=== PATIENT | male | born 1965 | race Caucasian/White ===

== ENCOUNTER 2018-10-23 12:39 | Day surgery (SDC) | payer BC ==
--- NOTE | 2018-10-22 20:40 | History & Physical ---
History of Present Illness General Date patient seen: October 15, 2018 Reason for Hospitalization: pre op H&P for outpatient surgery Present Illness HPI This is a very pleasant 53 year old male who was referred to myself by his primary care physician for evaluation of a left thigh mass. Patient states he first noted mass on posterior left thigh 5 years and and since he feels that is has grown in size. Now causes discomfort and is especially uncomfortable when he sits down given location. no drainage. no infection. otherwise well Allergies: Coded Allergies: PENICILLINS (Verified Allergy, Unknown, sob, 10/22/18) Medication History Scheduled No Known Medications* (NKM - No Known Medications*), 0 ., (Reported) Patient History History Provided By: Patient Healthcare decision maker Resuscitation status Advanced Directive on File Past Medical/Surgical History Past Medical/Surgical History: (1) Mass of left thigh Review of Systems Review of Symptoms General ROS: no weight loss or fever Psychological ROS: no depression or mood changes, no memory loss Ophthalmic ROS: no visual changes or eye irritation ENT ROS: no nasal congestion, hearing loss, dizziness Allergy and Immunology ROS: no allergic symptoms or urticaria Hematological and Lymphatic ROS: no swollen glands, unusual bleeding or bruising Endocrine ROS: no polyuria, polydipsia, weight changes, temperature intolerance Respiratory ROS: no cough, shortness of breath, or wheezing Cardiovascular ROS: no chest pain or dyspnea on exertion Gastrointestinal ROS: denies abdominal pain, no bright red blood in stool. Musculoskeletal ROS: no myalgias or arthralgias Neurological ROS: no TIA or stroke symptoms Dermatological ROS: no new or changing skin lesions, rashes or pruritis Physical Exam Physical Exam General appearance: alert, cooperative, no distress, appears stated age Head: Normocephalic, without obvious abnormality, atraumatic Eyes: conjunctivae/corneas clear. PERRL, EOM's intact. Fundi benign Throat: Lips, mucosa, and tongue normal. Teeth and gums normal Neck: supple, symmetrical, trachea midline, no adenopathy, thyroid: not enlarged, symmetric, no tenderness/mass/nodules, no carotid bruit and no JVD Lungs: clear to auscultation bilaterally Heart: regular rate and rhythm, S1, S2 normal, no murmur, click, rub or gallop Abdomen: soft, non-tender. Bowel sounds normal. No masses, no organomegaly Extremities: extremities normal, atraumatic, no cyanosis or edema. Left thich with 4-5 cm mobile posterior midline mass cyst vs hard lipoma Pulses: 2+ and symmetric Skin: Skin color, texture, turgor normal. No rashes or lesions Neurologic: Grossly normal Assessment/Plan Problem List: (1) Mass of left thigh Assessment & Plan: 53M with growing symptomatic left posterior thigh mass recommend excision which is medically indicated will schedule for outpatient surgery on 10/23/2018 pre op information sent to patient via email surgery with local and mild sedation npo iv fluids pre op abx consent thank you ICD Codes: R22.42 - Localized swelling, mass and lump, left lower limb SNOMED: [id number] Issa Galvin October 22, 2018 20:40
--- NOTE | 2018-10-22 20:44 | Pre-Procedure Note/Attestation ---
Pre-Procedure Note/Attestation Complete Prior to Procedure Planned Procedure: left Procedure Narrative: excision of left thigh mass with closure Indications for Procedure Pre-Operative Diagnosis: left thigh mass Attestation I attest that I discussed the nature of the procedure; its benefits; risks and complications; and alternatives (and the risks and benefits of such alternatives ), prior to the procedure, with the patient (or the patient's legal bank representative). I attest that, if there was a reasonable possibility of needing a blood transfusion, the patient (or the patient's legal bank representative) was given the [facility] standardized written summary, pursuant to the Matthias Master Blood Safety Act ([place] Health and Safety Code # 1645, as amended). I attest that I re-evaluated the patient just prior to the surgery and that there has been no change in the patient's H&P, except as documented below: Issa Galvin October 22, 2018 20:44
[~2018-10-23] VITALS: Ht 180.3 cm; Wt 80.7 kg
[2018-10-23] VITALS (9 sets, daily range): BP systolic 119–150; BP diastolic 73–86
[~2018-10-23 12:39] MED LIST: Clindamycin 600mg 50 ML IV ONE
[2018-10-23] MEDS ORDERED: fentaNYL 100 mcg/2 mL IV ONE (13:07)
[2018-10-23] MEDS ORDERED: Midazolam 2mg/2ml Inj ONE (13:07)
[2018-10-23] MEDS ORDERED: NKM (13:24)
[2018-10-23] MEDS ORDERED: Lidocaine 1% 10mg/ml/Epi 0.005mg/ml 30ml vial INJ ONE (14:12)
[2018-10-23] MEDS ORDERED: Bacitracin 50000 Units Vial ONE (14:12)
[2018-10-23] MEDS ORDERED: Propofol 200mg/20ml IV ONE (14:34)
[2018-10-23] MEDS ORDERED: Sterile Water Irrig 1000ml IRRIG ONE (14:40)
[2018-10-23] MEDS ORDERED: NS Irrig 1000ml ONE (14:40)
[2018-10-23] MEDS ORDERED: LR 1000ml ONE (14:40)
[2018-10-23] MEDS ORDERED: LR 1000ml 1,000 ML IVLG SCH (15:11)
--- NOTE | 2018-10-23 15:11 | Anethesia Preoperative Eval ---
Anesthesia Pre-op PMH/ROS General Date of Evaluation: October 23, 2018 Time of Evaluation: 14:32 Anesthesiologist: Gadiel ASA Score: ASA 2 Mallampati Score Class I : Soft palate, uvula, fauces, pillars visible Class II: Soft palate, uvula, fauces visible Class III: Soft palate, base of uvula visible Class IV: Only hard plate visible Mallampati Classification: Class II Surgeon: Vasu Diagnosis: L thigh mass Surgical Procedure: Excision of L posterior thigh mass Anesthesia History: none Family History: no anesthesia problems Allergies: Coded Allergies: PENICILLINS (Verified Allergy, Unknown, sob, 10/22/18) Medications: see eMAR Patient NPO?: Yes Past Medical History Cardiovascular: Denies: HTN, CAD, [place], valve dz, arrhythmia, other Pulmonary: Denies: asthma, COPD, MARIAH, other Gastrointestinal/Genitourinary: Reports: GERD; Denies: CRI, ESRD, other Neurologic/Psychiatric: Denies: dementia, CVA, depression/anxiety, TIA, other Endocrine: Denies: DM, hypothyroidism, steroids, other HEENT: Denies: cataract (L), cataract (R), glaucoma, [place] (L), [place] (R), other Hematology/Immune: Reports: other - HIV + stable on antivirals; Denies: anemia, DVT, bleeding disorder Musculoskeletal/Integumentary: Denies: OA, RA, DJD, DDD, edema, other PMH Narrative: as above PSxH Narrative: None Anesthesia Pre-op Phys. Exam Physician Exam Last Vital Signs Date Time Temp Pulse Resp B/P (MAP) Pulse Ox O2 Delivery O2 Flow Rate FiO2 10/23/18 13:24 98.2 80 20 150/86 98 Room Air Constitutional: NAD Neurologic: CN 2-12 intact Cardiovascular: RRR, no M/R/G Respiratory: CTA Gastrointestinal: S/NT/ND Airway Exam Mallampati Score: Class II MO: full Neck: flexible ROM: full Teeth: intact Dentures: no upper, no lower Anesthesia Pre-op A/P Labs see chart Studies Pre-op Studies: EKG - SR Risk Assessment & Plan Assessment: ASA 2 Plan: MAC prone position Status Change Before Surgery: No Pre-Antibiotics Drug: Ancef 1gr Given Within 1 Hr of Incision: Yes Time Given: 14:50 Toño Ramesh MD October 23, 2018 15:11
[2018-10-23] MEDS ORDERED: Ketorolac 30mg Inj IV PRN (15:15)
[2018-10-23] MEDS ORDERED: Meperidine 50mg/ml Inj(FOR RIGORS ONLY) IV PRN (15:15)
[2018-10-23] MEDS ORDERED: DiphenhydrAMINE 50mg/ml Inj IVP PRN (15:15)
--- NOTE | 2018-10-23 15:25 | Brief Operative Note ---
Immediate Post Operative Note Operative Note Pre-op Diagnosis: left thigh mass Procedure: 1. excision of left posterior thigh cyst deep to fascia 4cm x 3cm 2. adjacent tissue transfer for closure of defect Post-op Diagnosis: same as pre-op Surgeon: john Anesthesiologist: alexander Anesthesia: local, moderate sedation Specimen: yes Complications: none Condition: stable Fluids: see records Estimated Blood Loss: minimal Drains: none Implant(s) used?: No Issa Galvin October 23, 2018 15:25
--- NOTE | 2018-10-23 15:27 | Immediate Post-Op Evaluation ---
Immediate Post-Op Evalulation Immediate Post-Op Evalulation Procedure: Excision of mass posterior thigh Date of Evaluation: October 23, 2018 Time of Evaluation: 15:26 IV Fluids: 300 Blood Products: none Estimated Blood Loss: min Urinary Output: none Blood Pressure Systolic: 132 Blood Pressure Diastolic: 68 Pulse Rate: 74 Respiratory Rate: 20 O2 Sat by Pulse Oximetry: 99 Temperature (Fahrenheit): 97.5 Pain Score (1-10): 1 Nausea: No Vomiting: No Complications none Patient Status: awake, patent Hydration Status: adequate Toño Ramesh MD October 23, 2018 15:27
--- NOTE | 2018-10-23 15:31 | 48 Hour Post Anesthesia Eval ---
Post Anesthesia Evaluation Procedure: Excision of mass posterior thigh L Date of Evaluation: October 23, 2018 Time of Evaluation: 15:30 Blood Pressure Systolic: 107 0: 72 Pulse Rate: 68 Respiratory Rate: 18 Temperature (Fahrenheit): 97.6 O2 Sat by Pulse Oximetry: 98 Airway: patent Nausea: No Vomiting: No Pain Intensity: 1 Hydration Status: adequate Cardiopulmonary Status: stable Mental Status/LOC: patient returned to baseline Follow-up Care/Observations: n/a Post-Anesthesia Complications: none Follow-up care needed: ready to discharge Toño Ramesh MD October 23, 2018 15:31
[2018-10-23] MEDS ORDERED: HYDROcodone/Acetamin 5/325 tab ORAL PRN (21:01)
[2018-10-23] MEDS ORDERED: HYDROmorphone 1mg/ml Carpuject SUBQ PRN (21:01)
[2018-10-23] MEDS ORDERED: D5 1/2NS 1,000 ML IV SCH (21:01)
[2018-10-23] MEDS ORDERED: Tylenol #3 tab (300mg/30mg) ORAL PRN (21:01)
--- NOTE | 2018-10-23 22:30 | Operative Note - Dictated ---
DATE OF OPERATION: 10/23/2018 PREOPERATIVE DIAGNOSIS: Left thigh mass. POSTOPERATIVE DIAGNOSIS: Left posterior mid thigh cyst/mass. OPERATION PERFORMED: 1. Excision of left posterior thigh cyst deep fascia 4 cm x 3 cm. 2. Adjacent soft tissue transfer for closure of defect. ATTENDING SURGEON: Issa Galvin M.D. SCREEN HANDLER: None. ANESTHESIOLOGIST: Toño Ramesh M.D. ANESTHESIA: Moderate sedation plus local. SPECIMENS: Left thigh cyst. COMPLICATIONS: None. DRAINS: None. ANTIBIOTICS: Clindamycin 600 mg given 1 hour prior to cut time. INDICATIONS FOR PROCEDURE: This is a 53-year-old male who was referred to Dr. Galvin for evaluation of a symptomatic left thigh mass. Initially noticed some time ago, but believes it has grown since and now becoming more symptomatic as he complains of discomfort with sitting given the location of the mass. On examination, had a mobile moderate-sized left thigh mass of which removal was indicated and recommended. Risks, benefits, and alternatives were discussed with the patient in detail, who expressed understanding and consented surgery, which is scheduled for 10/23/2018. OPERATIVE NOTE: The patient was taken to the operating room and placed on the operating table in the prone position with all bony prominences well padded. Preoperative time-out taken in identifying the patient, procedure, operative staff, and surgical staff. Moderate sedation was provided by the anesthesiologist under direct monitoring by the anesthesiologist. The posterior left thigh was prepped and draped in standard surgical fashion. Local anesthetic was infiltrated in the proposed skin incision. A skin incision was made at the apex of the left thigh mass and the mass was circumferentially dissected out. The base of the mass was identified to be attached to the posterior thigh fascia and it was divided using a 3-0 Vicryl suture at the base. Once the mass was completely excised, it was identified to be a cyst approximately 3 x 4 cm and it was opened and sebaceous fluid was identified and the cyst contents were sent to pathology for review. Following this, the wound bed was irrigated and hemostasis was obtained using electrocautery. The adjacent soft tissues, subcutaneous fat, and skin were mobilized to cover the defect for a complex two-layer closure. Electrocautery was used plus dissection and subcutaneous tissue was mobilized off the fascia and in the superior and inferior aspect and brought together filling the defect void. Once this was completed, the defect was closed in a two-layer fashion with the subcutaneous tissue beginning with 3-0 Vicryl followed by 4-0 Monocryl subcuticular interrupted sutures. The wound was cleansed and Steri-Strips and Dermabond was applied. The patient tolerated the procedure well and was taken to postanesthetic care unit in stable condition and discharged home with care instructions. Issa Galvin M.D. DR: MARIANO JOB#: [id number] CC: [email or web address]
== END 2018-10-23 16:40 | disposition home or self-care (01) ==
LOC: SUR 12:39
DX: R22.42 Localized swelling, mass and lump, left lower limb (principal); L72.8 Other follicular cysts of the skin and subcutaneous tissue; Z88.0 Allergy status to penicillin; K21.9 Gastro-esophageal reflux disease without esophagitis; B20 Human immunodeficiency virus [HIV] disease
CPT/HCPCS: 13121; 14020; 27337; J0690; J2250; J2704; J3010; 94003; 94150